=== PATIENT | female | born 1990 ===

== ENCOUNTER 2018-02-07 08:37 | Emergency (ER) | payer MEDICAID ==
--- NOTE | 2018-02-07 09:41 | ED PDOC ---
Arrival/HPI - General Time Seen by Provider: 02/07/18 09:33 Historian: Patient - History of Present Illness Narrative History of Present Illness (Text): 02/07/18 09:38 This 27 yo female with pmh asthma, presents to this Emergency department complaining of dysuria, hematuria, urgency, and urinary frequency x 1 day. Patient denies vaginal bleeding, vaginal discharge, STD exposure, fever, flank pain, rectal bleeding, pelvic pain, abdominal pain, back pain, dizziness, or abnormal gait. Time/Duration: Other (see hpi) Context: Home Past Medical History - Provider Review Nursing Documentation Reviewed: Yes Family/Social History - Physician Review Nursing Documentation Reviewed: Yes Family/Social History: Other (noncontributory) Allergies/Home Meds Allergies/Adverse Reactions: Allergies No Known Allergies Allergy (Verified 02/07/18 09:45) Review of Systems - Review of Systems Constitutional: Normal. absent: Fatigue, Weight Change, Fevers, Night Sweats Eyes: Normal ENT: Normal Respiratory: Normal. absent: SOB, Cough Cardiovascular: Normal. absent: Chest Pain Gastrointestinal: Normal. absent: Abdominal Pain, Diarrhea, Nausea, Vomiting Genitourinary Female: Dysuria, Frequency, Hematuria. absent: Urine Output Changes, Vaginal Bleeding, Vaginal Discharge Musculoskeletal: Normal. absent: Arthralgias, Back Pain, Neck Pain Skin: Normal. absent: Rash Neurological: Normal. absent: Headache, Dizziness, Focal Weakness, Gait Changes , Speech Changes, Facial Droop, Disequilibrium Endocrine: Normal Hemo/Lymphatic: Normal Psychiatric: Normal Physical Exam Vital Signs Temp Pulse Resp BP Pulse Ox 02/07/18 10:34 98.5 F 84 16 144/84 99 02/07/18 09:10 98.7 F 76 16 129/78 99 Temperature: Afebrile Blood Pressure: Normal Pulse: Regular Respiratory Rate: Normal Appearance: Positive for: Well-Appearing, Non-Toxic, Comfortable Pain Distress: None Mental Status: Positive for: Alert and Oriented X 3 - Systems Exam Head: Present: Atraumatic, Normocephalic Pupils: Present: PERRL Extroacular Muscles: Present: EOMI Conjunctiva: Present: Normal Mouth: Present: Moist Mucous Membranes Neck: Present: Normal Range of Motion Respiratory/Chest: Present: Clear to Auscultation, Good Air Exchange. No: Respiratory Distress, Accessory Muscle Use Cardiovascular: Present: Regular Rate and Rhythm, Normal S1, S2. No: Murmurs Abdomen: Present: Tenderness (Mild uprapubuic tenderness. No rash). No: Distention, Peritoneal Signs, Rebound, Guarding, McBurney's Point Tender, Rovsing's Sign Present, Hernias, Feeding Tubes, Scars Genitourinary/Pelvic Exam: Present: Other (deferred by patient) Back: Present: Normal Inspection Upper Extremity: Present: Normal Inspection, Normal ROM, NORMAL PULSES, Neurovascularly Intact, Capillary Refill < 2s. No: Cyanosis, Edema Lower Extremity: Present: Normal Inspection, NORMAL PULSES, Normal ROM, Neurovascularly Intact, Capillary Refill < 2 s. No: Edema Neurological: Present: GCS=15, CN II-XII Intact, Speech Normal, Motor Func Grossly Intact, Normal Sensory Function, Normal Cerebellar Funct, Gait Normal, Memory Normal Skin: Present: Warm, Dry, Normal Color. No: Rashes Psychiatric: Present: Alert, Oriented x 3, Normal Insight, Normal Concentration Medical Decision Making ED Course and Treatment: 02/07/18 11:35 Re-evaluation. Patient feels better. Discussed results and plan with patient who expresses understanding. All questions answered and there is agreement with the plan to discharge home with instructions. Patient stable for discharge. Return if symptoms persist or worsen. Patient was recommended to f/u urine culture result in 2-3 days with her PMD. To take medication as instructed, and return to Emergency department if symptoms worsen. Re-evaluation Time: 11:36 Reassessment Condition: Re-examined, Improved - Lab Interpretations Lab Results: Lab Results 02/07/18 11:00: Urine Color Yellow, Urine Appearance Clear, Urine pH 7.0, Ur Specific [place] 1.025, Urine Protein 100 H, Urine Glucose (UA) Negative, Urine Ketones Negative, Urine Blood Large H, Urine Nitrate Negative, Urine Bilirubin Negative, Urine Urobilinogen 0.2, Ur Leukocyte Esterase Moderate H, Urine RBC Tntc, Urine WBC Tntc, Ur Epithelial Cells 1 - 3, Urine Bacteria Many I have reviewed the lab results: Yes Interpretation: Abnormal lab values - Medication Orders Current Medication Orders: Sodium Chloride (Sodium Chloride 0.9%) 500 mls @ 999 mls/hr IV .Q31M STA Stop: 02/07/18 11:35 Last Admin: 02/07/18 11:13 Dose: 999 mls/hr eMAR Start Stop Document 02/07/18 11:13 LA (Rec: 02/07/18 11:14 EWELINA [id number]) Intravenous Solution Start Date 02/07/18 Start Time 11:14 End Date 02/07/18 End time 11:45 Total Infusion Time 31 Discontinued Medications Cephalexin Monohydrate (Keflex) 500 mg PO STAT STA PRN Reason: Protocol Stop: 02/07/18 10:03 Last Admin: 02/07/18 10:48 Dose: 500 mg Ketorolac Tromethamine (Toradol) 15 mg IM STAT STA Stop: 02/07/18 10:02 Last Admin: 02/07/18 10:47 Dose: 15 mg MAR Pain Assessment Document 02/07/18 10:47 EWELINA (Rec: 02/07/18 10:48 [id number] Pain Reassessment Is this a pain reassessment? No Sleep Is patient sleeping during reassessment? No Presence of Pain Presence of Pain Yes Pain Scale Used Pain Scale Used Numeric Location Left, Right or Bilateral Left Upper or Lower Lower Pain Location Body Site Abdomen Description Description Intermittent Intensity of Pain at present 5 Pain Behavior Guarding IM Administration Charges Document 02/07/18 10:47 EWELINA (Rec: 02/07/18 10:48 EWELINA [id number]) Charges for Administration # of IM Administrations 1 Phenazopyridine HCl (Pyridium) 200 mg PO STAT STA Stop: 02/07/18 10:03 Last Admin: 02/07/18 10:48 Dose: 200 mg Disposition/Present on Arrival - Present on Arrival Any Indicators Present on Arrival: No History of DVT/PE: No History of Uncontrolled Diabetes: No Urinary Catheter: No History of Decub. Ulcer: No - Disposition Have Diagnosis and Disposition been Completed?: Yes Diagnosis: Acute cystitis Disposition: HOME/ ROUTINE Disposition Time: 11:36 Patient Plan: Discharge Patient Problems: Current Active Problems Problem Status Onset Acute cystitis Acute Condition: GOOD Discharge Instructions (ExitCare): Acute Cystitis (DC) Additional Instructions: Call private doctor for follow up visit in 1-2 days. Take medication as instructed. Review urine culture result with your doctor in 2-3 days. Return to emergency if symptoms worsen. Drink plenty of fluids and rest. Prescriptions: Cephalexin [cephalexin] 500 mg PO BID #14 cap Phenazopyridine [Phenazopyridine HCl] 200 mg PO TID #6 tab Referrals: Bertha Grey MD [Primary Care Provider] - Follow up with primary
[2018-02-07] MEDS ORDERED: Sodium Chloride 0.9% 500 ML IV STA (11:05)
[2018-02-07 11:17] LABS: URINE BILIRUBIN NEGATIVE (NEGATIVE); URINE BLOOD LARGE (NEGATIVE); URINE GLUCOSE (UA) NEGATIVE (NEGATIVE); URINE LEUKOCYTE ESTERASE MODERATE Leu/uL (NEGATIVE); URINE PROTEIN 100 mg/dL (<30 mg/dL); URINE UROBILINOGEN 0.2 E.U./dL (<1 E.U./dL)
[2018-02-07 11:26] LABS: URINE APPEARANCE CLEAR (CLEAR); URINE COLOR YELLOW (YELLOW)
[2018-02-07 11:29] LABS: URINE RBC TNTC /hpf (0-2); URINE WBC TNTC /hpf (0-6)
[2018-02-07 11:30] LABS: URINE BACTERIA MANY (NEG)
[2018-02-07 11:40] VITALS: RESP 18
[2018-02-07 12:18] VITALS: BP 135/75; PULSE 75; TEMP 98.3; O2SAT 100
== END 2018-02-07 12:00 | disposition home or self-care (01) ==
LOC: ED 08:37
DX: N30.00 Acute cystitis without hematuria (principal)
CPT/HCPCS: 81001; 81025; 87086; 96360; 96372; 99284; J1885; J7040